=== PATIENT | male | born 1965 | race Caucasian/White ===

== ENCOUNTER → 2020-05-28 11:28 | Outpatient (CLI) | payer OTHER, SELFPAY ==
[2020-05-28 14:53] LABS: Absolute Lymphocyte Count 0.96 X10^3/uL (0.83-4.51); Basophil# 0.05 X10^3/uL; Basophil% 0.9 % (0-1); Eosinophils% 3.5 % (0-5); Hematocrit 46.6 % (40-54); Lymphocyte # 0.96 X10^3/ul (4.0); Mean Corp Hgb Conc 32.2 g/dL (32-36); Mean Corpuscular Volume 86.9 fL (80-94); Mean Platelet Vol. 9.2 fl (6.2-12.0); Monocyte# 0.39 X10^3/uL; Monocyte% 6.9 % (0-10); NRBC Flagged by Analyzer 0 % (0-5); Neutrophil # 4.04 X10^3/uL (2.7-7.7); Neutrophil % 71.5 % (47-70); Platelet Count 250 K/mm3 (150-450); RBC Distribution Width CV 11.8 % (11.6-14.6); RBC Distribution Width SD 37.4 fl (35.1-43.9); Red Blood Count 5.36 M/mm3 (4.6-6.2); White Blood Count 5.7 K/mm3 (4.4-11.0)
[2020-05-28 15:36] LABS: ALB/GLOB Ratio 1.2 RATIO (0.9-2.4); AST(SGOT) 14 U/L (15-37); Alanine Aminotransfer ALT/SGPT 19 U/L (16-61); Alkaline Phosphatase 56 U/L (45-117); Anion Gap 6 (5-15); BUN 13 mg/dL (7-18); BUN/Creat Ratio 13.3 RATIO (10-20); Calcium,Total 8.7 mg/dL (8.5-10.1); Chloride 106 mmol/L (98-107); Creatinine, Serum 0.98 mg/dL (0.70-1.30); EST Glomerular Filtration Rate 85 mL/min (>60); Est Glom Filt Rate - Afr Amer 103 mL/min (>60); Globulin 3.3 g/dL (2.2-4.2); Glucose 82 mg/dL (74-106); Magnesium 2.4 mg/dL (1.6-2.6); Protein, Total 7.3 g/dL (6.4-8.2); Sodium Level 142 mmol/L (136-145); Thyroid Stim Hormone (TSH) 1.05 uIU/mL (0.358-3.74)
== END ==
PROVIDERS: PCP Family Medicine; Referring Provider Family Medicine; Visit Provider Family Medicine
DX: R00.2 Palpitations (principal)
CPT/HCPCS: 36415; 80053; 83735; 84443; 85025

== ENCOUNTER → 2020-07-08 09:45 | Outpatient (CLI) | payer OTHER, SELFPAY ==
[2020-07-01 09:18] VITALS: BMI 24.3
--- NOTE | 2020-07-08 09:47 | ECHOD_ITS ---
Reason For Study: ARRHYTHMIA Procedure This was a 2D Doppler, Color Flow transthoracic echocardiogram. The study was technically difficult. Exam performed in department. Left Ventricle Normal LV size. Left ventricular systolic function is normal. The estimated ejection fraction is 60 %. No regional wall motion abnormalities noted. Right Ventricle Normal RV size. Normal systolic function. Atria Normal left atrium. Normal right atrium. Mitral Valve Normal mitral valve. Tricuspid Valve Normal tricuspid valve. Mild (1+) tricuspid valve insufficiency. Pulmonary artery systolic pressure is 40 mmHg. Aortic Valve Normal aortic valve. Trisinus/trileaflet aortic valve. Mild (1+) eccentric aortic valve insufficiency. Pulmonic Valve Normal pulmonic valve. Great Vessels Moderately dilated aortic root. The pulmonary artery is normal size. Normal inferior vena cava. Pericardium/Pleural No pericardial effusion. MMode/2D Measurements & Calculations LVIDd: 5.0 cm IVSd: 0.64 cm Ao root diam: 3.9 cm LVIDs: 3.7 cm LVPWd: 0.79 cm FS: 26.8 % LAV(MOD-bp): 47.7 ml LVAd ap4: 31.7 cm2 SV(MOD-sp4): 53.6 ml LAV(MOD-bp) Indexed: 24.0 ml/m2 EDV(MOD-sp4): 99.1 ml LAV(MOD-sp2): 51.8 ml EDV(sp4-el): 102.3 ml LAV(MOD-sp4): 36.1 ml LVAs ap4: 19.9 cm2 ESV(MOD-sp4): 45.5 ml ESV(sp4-el): 45.8 ml EF(MOD-sp4): 54.1 % EF(sp4-el): 55.2 % SV(sp4-el): 56.5 ml LA A4 area: 14.6 cm2 LA dimension(2D): 3.1 cm RA A4 area: 10.8 cm2 Time Measurements MV dec time: 0.28 sec Doppler Measurements & Calculations MV E max junior: 94.1 cm/sec Lat Peak E' Junior: 15.7 cm/sec Med Peak E' Junior: 8.6 cm/sec MV A max junior: 51.4 cm/sec E/E' lat: 6.0 E/E' med: 11.0 MV E/A: 1.8 Ao V2 max: 169.8 cm/sec AI max junior: 417.9 cm/sec LV V1 max: 131.0 cm/sec Ao max P.5 mmHg AI max P.1 mmHg LV V1 max P.9 mmHg AI dec slope: 289.3 cm/sec2 AI P1/2t: 423.1 msec TR max junior: 297.1 cm/sec TR max P.3 mmHg Interpretation Summary Normal LV size. Left ventricular systolic function is normal. The estimated ejection fraction is 60 %. Moderately dilated aortic root. Mild (1+) eccentric aortic valve insufficiency. Ordering Physician: Benji Sanchez Referring Physician: TINY JAMES Performed By: Jadyn Fernandez, MELONY, RVT
--- NOTE | 2020-07-08 16:30 | STRESSREP ---
Stress Test Report Exercise stress test. 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 Stress protocol: Resting EKG demonstrates normal sinus rhythm with a rate of 79 bpm normal intervals are noted resting blood pressure is 108/70 mmHg. The patient exercised according to regular Boni protocol for a total duration of 9 minutes. The maximum heart rate attained was 144 bpm which was 87% of max impacted heart rate the maximum workload was 10.1 metabolic equivalents. Patient completed stage III of the Boni protocol. At rest there were no ST changes noted suggest ischemia peak exercise upsloping ST changes were noted with no meet the criteria for ischemia. The peak blood pressure was 160/80 mmHg with a rate-pressure product 22,700. No clinical angina was noted the test was terminated due to leg discomfort. Conclusion: Stress test with no evidence of ischemia at a high workload. No arrhythmias noted. Good functional aerobic capacity.
== END ==
PROVIDERS: PCP Family Medicine; Referring Provider Internal Medicine Cardiovascular Disease; Visit Provider Internal Medicine Cardiovascular Disease
DX: R00.2 Palpitations (principal)
CPT/HCPCS: 93017; 93225; 93226; 93306

== ENCOUNTER → 2020-07-29 12:27 | Outpatient (CLI) | payer OTHER, SELFPAY ==
[2020-07-01 09:18] VITALS: BMI 24.3
== END ==
PROVIDERS: PCP Family Medicine; Visit Provider Internal Medicine Cardiovascular Disease
DX: G47.10 Hypersomnia, unspecified (principal); R00.2 Palpitations; R06.81 Apnea, not elsewhere classified; R06.83 Snoring; R42 Dizziness and giddiness
CPT/HCPCS: 95806